=== PATIENT | male | born 2000 | race Caucasian/White ===

== ENCOUNTER 2019-12-25 10:34 | Emergency (ER) | payer OTHER, SELFPAY ==
[2019-12-25 10:40] VITALS: BP 135/79; PULSE 78; RESP 16; TEMP 36.4; O2SAT 100
--- NOTE | 2019-12-25 10:54 | ECG_ITS ---
Measurements Intervals [place] Rate: 67 P: -2 [place]: 128 QRS: 83 QRSD: 133 T: 49 QT: 406 QTc: 429 Interpretive Statements SINUS RHYTHM WITH SINUS ARRHYTHMIA RIGHT BUNDLE BRANCH BLOCK BASELINE WANDER- I, II, III ABNORMAL ECG Electronically Signed On 12-25-2019 17:31:17 [employer]OCIATE APPLICATION DEVELOPER by Tim Grace D.O.
[2019-12-25 11:13] VITALS: BP 111/51; PULSE 68
[2019-12-25 11:14] VITALS: BP 105/58; PULSE 74
[2019-12-25 11:15] VITALS: BP 102/52; PULSE 74
[2019-12-25 11:19] VITALS: BP 102/52; PULSE 74; RESP 16; TEMP 36.4; O2SAT 100
--- NOTE | 2019-12-25 11:34 | ED.GENADULT ---
HPI - General Adult General Chief complaint: Dizziness Stated complaint: Chest pain/dizzy Time Seen by Provider: 12/25/19 10:52 Source: patient and RN notes reviewed Mode of arrival: ambulatory Limitations: no limitations History of Present Illness HPI narrative: Patient presents today complaining of epigastric pressure and dizziness. Patient has chronic GERD and at times feels distended with air. States that after breakfast this morning he was feeling very distended like he needed to belch and decided to go on a run and see if that would help relieve the gas. As he was running, he felt the pressure worsen to the point where he was feeling like he could not take a deep breath. He has had this sensation several times in the past. He also developed some dizziness, which was a new occurrence for him. He returned home and had some friends drive him to urgent care for evaluation. During this time he was experiencing some tingling in his bilateral hands. This episode began approximately 30 minutes prior to arrival. Since arrival, patient states the tingling in his hands has resolved and the dizziness has improved since he has been able to calm down. Patient was seen by his PCP yesterday, who switched his GERD medication from Pepcid to pantoprazole, which he did take his first dose of this morning. Patient does not drink caffeine. He has not been using any preworkout supplements. Denies any cardiac or pulmonary history. MD complaint: Dizziness, GERD Related Data Home Medications Medication Instructions Recorded Confirmed pantoprazole 40 mg PO DAILY 12/25/19 12/25/19 Allergies Allergy/AdvReac Type Severity Reaction Status Date / Time No Known Allergies Allergy Verified 12/25/19 10:44 Review of Systems Review of Systems: Narrative: CONSTITUTIONAL: Denies body aches, fever, chills, or sweats. EYES: Denies visual changes, redness, or discharge. ENT: Denies rhinorrhea, congestion, sore throat, or otalgia. CARDIOVASCULAR: Denies chest pain, palpitations, or edema. RESPIRATORY: Denies cough or dyspnea. GASTROINTESTINAL: Denies nausea, vomiting, or diarrhea. +epigastric pressure and discomfort GENITOURINARY: Denies dysuria or hematuria. SKIN: Denies rash, itching, or wounds. MUSCULOSKELETAL: Denies back pain, joint pain, or myalgia. NEUROLOGIC: Denies headache, numbness, or weakness.+dizziness, tingling in hands PSYCH: Denies depression or anxiety. [facility] Past Medical History Medical History (Updated 12/25/19 @ 11:54 by Radha Najera, [facility], ) GERD (gastroesophageal reflux disease) Comments At time of signature, I have reviewed and agree with nursing past medical, surgical, social and family history unless otherwise noted. Please see nursing chart for further information. There is no relevant family history pertinent to the presenting complaint Exam Narrative: Exam Narrative: GENERAL: Well-appearing, well-nourished, and in no acute distress. HEAD: Normocephalic, atraumatic. EYES: EOMI. No redness or drainage. Conjunctivae normal. ENT: Mucous membranes pink and moist. NECK: Normal AROM. Supple. No lymphadenopathy. CHEST: No respiratory distress. Clear to auscultation. HEART: Regular rate and rhythm. No murmur appreciated. Normal peripheral pulses. ABDOMEN: Soft, nondistended, normal active bowel sounds. + mild tenderness to the epigastrium MUSCULOSKELETAL: No bony tenderness. EXTREMITIES: Normal range of motion. No edema. Handgrips equal and strong. Foot push and pulls equal and strong. SKIN: Warm, dry, no rash. Capillary refill normal. Normal skin turgor. NEURO: No focal deficits. Alert and oriented x3. Gait steady. PSYCH: Normal affect. No signs of depression or anxiety. Course Course Emergency Course: Discussed patient with his primary care nurse practitioner, Chio, at his PCPs office, Dr. Blackburn. Agrees with plan to discharge home. Will see patient in office this week. Will remind patient regar
== END 2019-12-25 11:48 | disposition home or self-care (01) ==
PROVIDERS: Emergency Provider Nurse Practitioner
DX: R42 Dizziness and giddiness (principal); K21.9 Gastro-esophageal reflux disease without esophagitis
CPT/HCPCS: 93005; 99213; G0463